=== PATIENT | male | born 1960 | race Caucasian/White ===

== ENCOUNTER 2019-07-16 17:29 | Emergency (ER) | payer MEDICARE, OTHER ==
[~2019-07-16] VITALS: Ht 180.3 cm; Wt 69.5 kg
[~2019-07-16 17:29] MED LIST: POTA10TA36 PO
--- NOTE | 2019-07-16 18:32 | NUR ---
PT WAS YELLING AT THE PA WHILE SHE WAS ASSESSING HIM.
[2019-07-16] MEDS ORDERED: HYDR-4353 PO (18:48)
[2019-07-16] MEDS ORDERED: AZIT-63 PO (18:48)
[2019-07-16] MEDS ORDERED: METH4TAB81 PO (18:48)
--- NOTE | 2019-07-16 19:26 | NUR ---
[facility] CALLED FOR PATIENT AT HOSPITAL EXPENSE. PATIENT PROVIDED HOMELESS LUNCH. PATIENT AMBULATED WITH [facility] OUT OF ER, VERY STEADY ON HIS FEET.
[2019-07-16 19:27] VITALS: BP 121/67
== END 2019-07-16 19:27 | disposition home or self-care (01) ==
LOC: ER 17:30
DX: S00.12XA Contusion of left eyelid and periocular area, initial encounter (principal); R07.81 Pleurodynia; J44.1 Chronic obstructive pulmonary disease with (acute) exacerbation; I50.9 Heart failure, unspecified; F17.210 Nicotine dependence, cigarettes, uncomplicated; Z79.899 Other long term (current) drug therapy; Z87.19 Personal history of other diseases of the digestive system; Z56.0 Unemployment, unspecified; W18.39XA Other fall on same level, initial encounter; Y93.89 Activity, other specified; Y92.89 Other specified places as the place of occurrence of the external cause; Y99.8 Other external cause status
CPT/HCPCS: 99283